=== PATIENT | female | born 1940 | race African-American/Black ===

== ENCOUNTER → 2019-11-06 | Day surgery (SDC) | payer MEDICARE, BC ==
[2019-11-05 13:50] LABS: BASOPHILS # (AUTO) 0.1 (0.0-0.1); EOSINOPHILS # (AUTO) 0.3 (0.0-0.4); EOSINOPHILS % 6.4 % (0.0-6.0); HEMATOCRIT 39.7 % (34.2-44.1); HEMOGLOBIN 12.9 g/dL (12.0-16.0); LYMPHOCYTES # (AUTO) 2.2 (1.0-3.2); LYMPHOCYTES % 43.2 % (18.0-39.1); MEAN CORPUSCULAR HEMOGLOBIN 29.8 pg (28-32); MEAN CORPUSCULAR HGB CONC 32.5 g/dL (31-35); MEAN CORPUSCULAR VOLUME 91.7 fL (81-99); MONOCYTES # (AUTO) 0.6 (0.2-0.8); MONOCYTES % 12.3 % (4.4-11.3); NEUTROPHILS # (AUTO) 1.9 (2.1-6.9); NEUTROPHILS % 36.9 % (38.7-80.0); PLATELET COUNT 252 x10e3/uL (140-360); RED BLOOD COUNT 4.33 x10e6/uL (3.6-5.1); RED CELL DISTRIBUTION WIDTH 12.4 % (11.7-14.4)
[2019-11-05 14:09] LABS: ANION GAP 15.2 mmol/L (8-16); BLOOD UREA NITROGEN 15 mg/dL (7-26); BUN/CREATININE RATIO 21 (6-25); CALCIUM 9.7 mg/dL (8.4-10.2); CARBON DIOXIDE 22 mmol/L (22-29); CHLORIDE 107 mmol/L (98-107); CREATININE, SERUM 0.73 mg/dL (0.57-1.11); EST GLOMERULAR FILTRATION RATE > 60 ML/MIN (60-); GLUCOSE 83 mg/dL (74-118); POTASSIUM 4.2 mmol/L (3.5-5.1); SODIUM 140 mmol/L (136-145)
--- NOTE | 2019-11-05 14:33 | Diagnostic Imaging Report ---
EXAMINATION: CHEST 2 VIEWS INDICATION: Pre-operative COMPARISON: None FINDINGS: LINES/TUBES:None LUNGS:The lungs are well-inflated. No focal consolidation or pulmonary edema. PLEURA:No pleural effusion or pneumothorax. MEDIASTINUM:The cardiomediastinal silhouette appears normal in size and shape. Atherosclerotic calcifications of the thoracic aorta. BONES/SOFT TISSUES:No acute osseous injury. ABDOMEN:No free air under the diaphragm. Status post cholecystectomy IMPRESSION: No focal pneumonia or pulmonary edema. Signed by: Tristin Britt MD on 11/05/2019 2:30 PM
[~2019-11-06] MED LIST: ANASTROZOLE1 MG PO; ASPIR 8181 MG PO; AZOPT10 ML OP; B&O 60MG R/S 60 MG SUPP PR ONE; BOTULINUM TOXIN TYPE A 100 UNIT VIAL IM ONE; CALCET TABLET1 EACH PO; CEFTRIAXONE SOD 1 GM/NS 50 ML 50 ML IV ONE; CETIRIZINE HCL10 MG PO; COMBIGAN EYE DRO5 ML OP; CRESTOR10 MG PO; DEXAMETHASONE SOD PHOS INJ 4 MG/ML VIAL ONE; FENTANYL CITRATE/PF 100MCG/2 ML INJ ONE; FLUTICASONE; GLUCOPHAGE XR500 MG PO; GLYCOPYRROLATE INJ 0.2 MG/ML VIAL ONE; IOPAMIDOL 300MG/ML 50ML INFUS..BTL IV ONE; LATANOPROST2.5 ML OP; LIDOCAINE HCL 2% LOCAL INJ 5 ML SDV VIAL INJ ONE; LOSARTAN POTAS100 MG PO; OMEPRAZOLE40 MG PO; ONDANSETRON HCL INJ 2MG/ML 2ML 2 MG/ML VIAL ONE; PROPOFOL IV EMULSION 10 MG/ML 50 ML VIAL ONE; SEVOFLURANE INHAL SOLN 250 ML PEN BTL ONE; ULTRAM 50MG50 MG PO; ULTRAM50 MG PO; VIT PO
--- OUTSIDE RECORDS SUMMARY | 2019-11-06 07:08 | XMS REPORT ---
Author Author [facility] Address Unknown Phone Unavailable Care Team Providers Care [employer] Principal Name Role Phone DARIELA ALLEN Unavailable Unavailable Problems This patient has no known problems. Allergies, Adverse Reactions, Alerts This patient has no known allergies or adverse reactions. Medications This patient has no known medications. Results Test Description Test Time Test Comments Text Results Atomic Results Result Comments CHEST 2 VIEWS 2019-11-05 14:30:00 [facility] [address] [address] Patient Name: TRISTAN CONNELLY MR #: [id number] : 1940 Age/Sex: 79/F Req #: [id number] Adm Physician: Ordered by: DARIELA ALLEN MD Report #: [id number] Location: OR Room/Bed: Procedure: [id number] DX/CHEST 2 VIEWS Exam Date: 11/05/19 Exam Time: 1342 REPORT STATUS: Signed EXAMINATION: CHEST 2 VIEWS INDICATION: Pre-operative COMPARISON: None FINDINGS: LINES/TUBES:None LUNGS:The lungs are well-inflated. No focal consolidation or pulmonary edema. PLEURA:No pleural effusion or pneumothorax. MEDIASTINUM:The cardiomediastinal silhouette appears normal in size and shape. Atherosclerotic calcifications of the thoracic aorta. BONES/SOFT TISSUES:No acute osseous injury. ABDOMEN:No free air under the diaphragm. Status post cholecystectomy IMPRESSION: No focal pneumonia or pulmonary edema. Signed by: Angela Britt MD on 11/05/2019 2:30 PM Dictated By: ANGELA BRITT MD 1430 Transcribed By: PADMA on 11/05/19 1430 COPY TO: DARIELA ALLEN MD
[2019-11-06 10:00] VITALS: BP 143/75
--- NOTE | 2019-12-16 04:53 | Operative Report ---
DATE OF PROCEDURE: 11/06/2019 SURGEON: Mohan Torres MD PREOPERATIVE DIAGNOSES: 1. Refractory urge incontinence. 2. Incomplete bladder emptying. 3. Overactive bladder. POSTOPERATIVE DIAGNOSES: 1. Refractory urge incontinence. 2. Incomplete bladder emptying. 3. Overactive bladder. 4. Urethral stenosis. 5. Grade 1 cystocele. 6. Urethral hypermobility. 7. 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 OPERATIONS PERFORMED: 1. Cystourethroscopy with calibration and dilation of urethral stenosis (separate procedure performed for diagnosis of stenosis). 2. Cystourethroscopy with bilateral ureteral catheterization and retrograde ureteropyelography (separate procedure performed for the an incomplete bladder emptying and overactive bladder). 3. Interpretation of retrograde ureteropyelography. 4. Cystourethroscopy with intravesical injection of Botox (separate procedure performed for the refractory urge incontinence). 5. Pelvic examination under anesthesia. ANESTHESIA: General. COMPLICATIONS: None. CLINICAL SUMMARY: Nathalia Garcia is a 79-year-old woman with the above preoperative diagnoses. She is brought for the above procedure. She is aware of the risks of bleeding, infection, injury to adjacent structures, need for additional procedures and elected to proceed. OPERATIVE PROCEDURE IN DETAIL: Informed consent was verified. Nathalia Garcia was properly identified, taken to the operating room, placed on the cystoscopy table in supine position. Anesthesia was uneventfully begun. The patient was then carefully gently repositioned in the dorsal lithotomy position. All pressure points well padded. Her genitalia were prepared and draped in usual sterile fashion. A 22.5-Mozambican cystoscope sheath with obturator in place could not be easily placed into the patient's urethra. We therefore calibrated at 18-Mozambican in size and progressively dilated to 30-Mozambican in size. We then easily able to cannulate the urethra and bladder was drained. Panendoscopy revealed no suspicious mucosal lesions, no tumors, no stones, and no diverticula. Normally positioned and configured ureteral orifices were identified. An 8-Mozambican catheter was used to cannulate each ureter and retrograde ureteropyelography was performed. Interpretation of retrograde ureteropyelography contrast was instilled in retrograde fashion bilaterally. There were no tumors, no stones, no diverticula. Unobstructed drainage was observed bilaterally fluoroscopically. A right orthopedic prosthesis was noted in the region of the hip. 100 units of Botox were dissolved in 10 mL of sterile saline. There were injected in 0.5 mL aliquots in an even distribution throughout the supratrigonal bladder. The patient's bladder was drained. Cystoscope was withdrawn. Pelvic examination under anesthesia revealed atrophic vaginitis with vaginal os stenosis. Urethral hypermobility was also noted. No abnormal palpable pelvic masses could be appreciated. There were no obvious mucosal lesions. The patient was then uneventfully reversed from anesthesia and taken to recovery room in stable condition. There were no complications to the procedure and she tolerated the procedure well. Exclusive postoperative instructions were given and we will follow the patient in the office of course on a long-term basis. Mohan MD MEREDITH Torres/JEAN CARLOS /[id number]
== END | disposition home or self-care (01) ==
LOC: OR 06:58 → EDBD 09:30
PROVIDERS: ATTEND Urology
DX: N39.46 Mixed incontinence (principal); N32.81 Overactive bladder; N35.92 Unspecified urethral stricture, female; N81.10 Cystocele, unspecified; N36.41 Hypermobility of urethra; N81.89 Other female genital prolapse; R35.1 Nocturia; N95.2 Postmenopausal atrophic vaginitis; H40.9 Unspecified glaucoma; E11.9 Type 2 diabetes mellitus without complications; I25.10 Atherosclerotic heart disease of native coronary artery without angina pectoris; I10 Essential (primary) hypertension; K21.9 Gastro-esophageal reflux disease without esophagitis; Z88.6 Allergy status to analgesic agent; Z88.1 Allergy status to other antibiotic agents; Z01.810 Encounter for preprocedural cardiovascular examination; Z01.812 Encounter for preprocedural laboratory examination; Z01.818 Encounter for other preprocedural examination; Z79.82 Long term (current) use of aspirin; Z79.84 Long term (current) use of oral hypoglycemic drugs
CPT/HCPCS: 36415 ×2; 52281; 71046; 74420; 80048; 82948; 85025; 93005; C1758; J0587; J0696; J1100; J2001; J2405; J2704; J3010; Q9967

== ENCOUNTER → 2020-02-07 | Day surgery (SDC) | payer MEDICARE, BC ==
[2020-02-04 14:28] LABS: BASOPHILS % 0.8 % (0.0-1.0); EOSINOPHILS # (AUTO) 0.5 (0.0-0.4); EOSINOPHILS % 9.8 % (0.0-6.0); HEMATOCRIT 40.5 % (34.2-44.1); HEMOGLOBIN 13.2 g/dL (12.0-16.0); LYMPHOCYTES # (AUTO) 2.4 (1.0-3.2); LYMPHOCYTES % 44.8 % (18.0-39.1); MEAN CORPUSCULAR HEMOGLOBIN 30.5 pg (28-32); MEAN CORPUSCULAR HGB CONC 32.6 g/dL (31-35); MEAN CORPUSCULAR VOLUME 93.5 fL (81-99); MONOCYTES # (AUTO) 0.6 (0.2-0.8); MONOCYTES % 11.7 % (4.4-11.3); NEUTROPHILS # (AUTO) 1.7 (2.1-6.9); NEUTROPHILS % 32.7 % (38.7-80.0); PLATELET COUNT 255 x10e3/uL (140-360); RED BLOOD COUNT 4.33 x10e6/uL (3.6-5.1); RED CELL DISTRIBUTION WIDTH 12.7 % (11.7-14.4)
[2020-02-04 14:44] LABS: ANION GAP 15.4 mmol/L (8-16); BLOOD UREA NITROGEN 15 mg/dL (7-26); BUN/CREATININE RATIO 21 (6-25); CALCIUM 9.9 mg/dL (8.4-10.2); CARBON DIOXIDE 21 mmol/L (22-29); CHLORIDE 106 mmol/L (98-107); CREATININE, SERUM 0.73 mg/dL (0.57-1.11); EST GLOMERULAR FILTRATION RATE > 60 ML/MIN (60-); GLUCOSE 91 mg/dL (74-118); POTASSIUM 4.4 mmol/L (3.5-5.1); SODIUM 138 mmol/L (136-145)
[~2020-02-07] MED LIST changes: -FENTANYL CITRATE/PF 100MCG/2 ML INJ ONE; -GLYCOPYRROLATE INJ 0.2 MG/ML VIAL ONE; +PROPOFOL IV EMULSION 10 MG/ML 20 ML VIAL ONE; -PROPOFOL IV EMULSION 10 MG/ML 50 ML VIAL ONE
--- OUTSIDE RECORDS SUMMARY | 2020-02-07 07:23 | XMS REPORT | Clinical Summary ---
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 Role Phone Byron Victor MD PCP Allergies Comments Active Allergy Reactions Severity Noted Date Stomach cramps Codeine Other (See 03/11/2015 Comments) Medications End Date Status Medication Sig Dispensed Refills Start Date Active CONTOUR TEST STRIPS strip U BID 0 05/03 test strips 7 Active COMBIGAN 0.2-0.5 % LENARD 1 GTT IN 12 ophthalmic solution BOTH EYES BID 7 Active AZOPT 1 % ophthalmic LENARD 1 GTT IN 7 suspension BOTH EYES BID 7 Active cetirizine (ZyrTEC) 10 MG TK 1 T PO QD 1 06/03 tablet 7 Active latanoprost (XALATAN) LENARD 1 GTT IN 12 07/06/20 1 0.005 % ophthalmic BOTH EYES QHS 7 solution Active olmesartan (BENICAR) 20 TK 1 T PO D 1 MG tablet 7 Active rosuvastatin (CRESTOR) 10 TK 1 T PO QD 1 06/02 MG tablet 7 Active traMADol (ULTRAM) 50 mg TK 1 T PO D 1 tablet PRN 7 Active anastrozole (ARIMIDEX) 1 3 mg chemo tablet 7 Active multivitamin (THERAGRAN) Take 1 tablet 0 tablet by mouth. Active calcium carbonate-vitamin Take 1 tablet 0 D3 600 mg(1,500mg) -200 by mouth. unit per tablet Active fluticasone (FLONASE) 50 1 spray into 0 mcg/actuation nasal spray each nostril. Active aspirin (ECOTRIN) 81 MG Take 81 mg by 0 enteric coated tablet mouth. Active omeprazole (PriLOSEC) 40 Take 1 90 capsule 3 1 0/12/201 MG capsule capsule (40 7 mg total) by mouth daily. Active dicyclomine (BENTYL) 10 Take 1 60 capsule 2 MG capsule capsule (10 7 mg total) by mouth 2 (two) times a day. Active metFORMIN XR Take 1,000 mg 0 (GLUCOPHAGE-XR) 500 mg 24 by mouth 2 7 hr tablet (two) times a day. Active losartan (COZAAR) 100 MG Take 100 mg 0 tablet by mouth daily. Active timolol (TIMOPTIC) 0.5 % Administer 1 0 ophthalmic solution drop to both eyes daily. Active brimonidine 0.025 % drops Apply to eye 0 2 (two) times a day. 04/07/2020 Active dicyclomine (BENTYL) 10 Take 1 90 capsule 0 MG capsule capsule (10 0 mg total) by mouth daily as needed (abdominal cramps) for up to 90 days. 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) alendronate (FOSAMAX) 70 TK 1 T PO 1 06/14 MG tablet WEEKLY 7 01/08/2020 Discontinued metFORMIN XR TK 1 T PO BID 1 (GLUCOPHAGE-XR) 750 mg 24 7 hr tablet Active Problems Not on file Encounters Care Team Description Date Type Specialty Primitivo Saul MD Gastroesophageal reflux disease, esophag itis presence not specified (Primary Dx); Dyspepsia; Benign gastrointestinal stromal tumor (GIST); Personal history of colonic polyps; Family history of colon cancer; Abdominal cramps 01/08/2020 Telephone Gastroenterology Consult 12/10/2019 Travel after 02/06/2019 Family History Medical History Relation Name Comments Colon cancer Cousin mom side No Known Problems Father Diabetes Mother Heart disease Mother Relation Name Status Comments Cousin mom side Father Mother Social History Date Tobacco Use Types Packs/Day Years Used Never Smoker Smokeless Tobacco: Never Used Drinks/Week oz/Week Comments Alcohol Use No Sex Assigned at Date Recorded Not on file Industry Job Start Date Occupation Not on file Not on file Not on file Travel End Travel History Travel Start No recent travel history available. Last Filed Vital Signs Not on file Plan of Treatment Health Maintenance Due Date Last Done Comments DIABETIC RETINAL EYE EXAM 1940 DIABETIC FOOT EXAM 1950 SHINGLES VACCINES (#2) 08/17/2015 06/17/2015 INFLUENZA VACCINE 05/02/2020 06/27/2019, 07/11/2018, 06/14/2017, Additional history exists 65+ PNEUMOCOCCAL VACCINE Completed 06/14/2017, 02/17/2015, 04/23/2009 Results Not on fileafter 02/06/2019 Insurance Type Payer Benefit Subscriber ID Effective Phone Address Plan / Dates Group Medicare MEDICARE MEDICARE xxxxxxxxxxx 2005- [place], PART A AND Present [place] Commercial BCBS COMMERCIAL BCBS xxxxxxxxxxxx 2018- MEDICARE Present SUPPLEMENT Nathalia Garcia Third Self [phone] [facility] (Home) [place] [address] Liability Advance Directives For more information, please contact: [phone] 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
--- NOTE | 2020-02-07 11:08 | Diagnostic Imaging Report ---
OR Fluoroscopy: IMPRESSION: Fluoroscopy service provided in the OR. Interpretation not requested. Signed by: Juan José Harris MD on 02/07/2020 11:05 AM
[2020-02-07 11:20] VITALS: BP 128/73
--- NOTE | 2020-02-09 23:31 | Operative Report ---
DATE OF PROCEDURE: 02/07/2020 SURGEON: Mohan Torres MD PREOPERATIVE DIAGNOSES: 1. Refractory urge incontinence. 2. Urinary tract infections. POSTOPERATIVE DIAGNOSES: 1. Refractory urge incontinence. 2. Urinary tract infections. 3. Mild grade 1 cystocele. 4. Atrophic (senile) vaginitis. OPERATION PERFORMED: 1. Cystourethroscopy with bilateral ureteral catheterization and retrograde ureteropyelography (separate procedure performed for the urinary tract infections). 2. Interpretation of retrograde ureteropyelography. 3. Cystourethroscopy with intravesical injection of Botox (separate procedure performed to control the patient's incontinence). 4. Pelvic examination under anesthesia. ANESTHESIA: General. COMPLICATIONS: None. CLINICAL SUMMARY: Nathalia Garcia is a 79-year-old woman with refractory urge incontinence and small capacity bladder. The patient has undergone previous Botox injections, which have greatly improved her severity of incontinence. The patient has begun experiencing recurrence of her symptomatology and is due for Botox injection. This procedure is not elective from the sense that it is needed to maintain the patient's quality of life, without it the patient will be wearing diapers and having incontinence, which she does not desire to have. She was tested negative for COVID-19 and she is aware of the risks, benefits, and alternatives, and the risks of bleeding and hence we perform this procedure. She understood these risks and elected to proceed. PROCEDURE IN DETAIL: Informed consent was verified. Nathalia Garcia was properly identified, taken to the operating room, placed on the cystoscopy table in supine position. Anesthesia was uneventfully begun. The patient was then carefully and gently repositioned in dorsal lithotomy position with all pressure points well padded. Her genitalia were prepared and draped in usual sterile fashion. The cystoscope sheath with obturator in place was atraumatically inserted in the patient's urethra and bladder was drained. Panendoscopy of the urinary bladder revealed no suspicious mucosal lesions, no tumors, no stones, no diverticula. Grade 2 trabeculations were noted. An 8-Yakut catheter was used to cannulate each ureter and retrograde ureteropyelography was performed. Interpretation of retrograde ureteropyelography, contrast was instilled in retrograde fashion bilaterally. No tumors, no stones, no diverticula. Unobstructed drainage was observed bilaterally fluoroscopically. A 100 units of Botox were dissolved in 10 mL of sterile saline. That was then injected in 0.5 mL aliquots in even distributions throughout the supratrigonal bladder. The patient's bladder was then drained. Cystoscope was withdrawn. Pelvic examination under anesthesia revealed grade 1 cystocele with atrophic (senile) vaginitis. No abnormal palpable pelvic masses were identified. There were no obvious mucosal lesions. The patient was then uneventfully reversed from anesthesia and taken to recovery room in stable condition. There were no complications to the procedure. She tolerated the procedure well. Explicit postop instructions were given. We will follow the patient up in the office. Mohan MD MEREDITH Torres/JEAN CARLOS /[id number]
== END | disposition home or self-care (01) ==
LOC: OR 07:15
PROVIDERS: ATTEND Urology
DX: N39.41 Urge incontinence (principal); N39.0 Urinary tract infection, site not specified; N32.89 Other specified disorders of bladder; N32.81 Overactive bladder; N81.10 Cystocele, unspecified; N95.2 Postmenopausal atrophic vaginitis; I10 Essential (primary) hypertension; E11.9 Type 2 diabetes mellitus without complications; K21.9 Gastro-esophageal reflux disease without esophagitis; K58.9 Irritable bowel syndrome, unspecified; H40.9 Unspecified glaucoma; I25.10 Atherosclerotic heart disease of native coronary artery without angina pectoris; Z88.6 Allergy status to analgesic agent; Z01.812 Encounter for preprocedural laboratory examination; Z11.59 Encounter for screening for other viral diseases; Z79.82 Long term (current) use of aspirin; Z79.84 Long term (current) use of oral hypoglycemic drugs; Z85.3 Personal history of malignant neoplasm of breast
CPT/HCPCS: 36415 ×2; 52005; 52287; 74420; 80048; 82948; 85025; 87635; C1758; J0587; J0696; J1100; J2001; J2405; J2704; Q9967